=== PATIENT | female | born 1980 | race Hispanic/Latino ===

== ENCOUNTER 2020-11-02 03:47 | Emergency (ER) | payer OTHER ==
[~2020-11-02] VITALS: Ht 167.6 cm; Wt 113.4 kg
[2020-11-02] MEDS ORDERED: ORPHENADRINE CITRATE 30 MG/ML ML ONE (05:01)
[2020-11-02] MEDS ORDERED: KETOROLAC 60 MG VIAL (30MG/ML) ONE (05:02)
[2020-11-02 05:16] LABS: BASOPHILS % (AUTO) 0.3 % (0.0-5.0); EOSINOPHILS % (AUTO) 2.1 % (0.0-8.0); HEMATOCRIT 40.5 % (36-48); LYMPHOCYTES % (AUTO) 18.4 % (21.0-51.0); MEAN CORPUSCULAR HEMOGLOBIN 30.6 pg (27.0-33.0); MEAN CORPUSCULAR HGB CONC 34.1 g/dL (32.0-36.0); MEAN CORPUSCULAR VOLUME 89.8 fL (79-99); MONOCYTES % (AUTO) 6.1 % (3.0-13.0); NEUTROPHILS % (AUTO) 72.7 % (40.0-77.0); PLATELET COUNT (AUTO) 227 K/uL (130-400); RED BLOOD CELL COUNT(AUTO) 4.51 MIL/uL (4.00-5.50); RED CELL DISTRIBUTION WIDTH 13.2 % (11.0-15.5); WHITE BLOOD COUNT (AUTO) 9.8 K/uL (4.8-10.8)
[2020-11-02 05:18] LABS: CREATININE 0.7 mg/dL (0.5-1.5)
[2020-11-02 05:24] VITALS: BP 134/82
[2020-11-02 05:29] LABS: ALBUMIN 3.6 g/dL (3.5-5.0); BILIRUBIN,TOTAL 0.5 mg/dL (0.2-1.0); TOTAL PROTEIN, SERUM 8.2 g/dL (6.0-8.3)
[2020-11-02 07:01] VITALS: BP 134/82
[2020-11-02] MEDS ORDERED: CYCL10TA7 PO (07:13)
[2020-11-02] MEDS ORDERED: IBUP-2070 PO (07:13)
== END 2020-11-02 07:29 | disposition home or self-care (01) ==
LOC: EDH 04:34
DX: S33.5XXA Sprain of ligaments of lumbar spine, initial encounter (principal); M62.830 Muscle spasm of back; R73.9 Hyperglycemia, unspecified; Z91.041 Radiographic dye allergy status; Z79.899 Other long term (current) drug therapy; V49.49XA Driver injured in collision with other motor vehicles in traffic accident, initial encounter; Y93.89 Activity, other specified; Y92.89 Other specified places as the place of occurrence of the external cause; Y99.8 Other external cause status
CPT/HCPCS: 36415; 72131; 80053; 83690; 84702; 85025; 96372 ×2; 99284; J1885; J2360

== ENCOUNTER 2021-04-27 01:31 | Emergency (ER) | payer OTHER ==
[~2021-04-27] VITALS: Ht 152.4 cm; Wt 131.5 kg
[~2021-04-27 01:31] MED LIST: CYCL-309 PO; IBUP-2070 PO
[2021-04-27] MEDS ORDERED: PRED20 PO (02:07)
[2021-04-27] MEDS ORDERED: SOLU-MEDROL 125MG VIAL ONE (02:16)
[2021-04-27 02:28] VITALS: BP 124/78
[2021-04-27] MEDS ORDERED: SOLU-MEDROL 40MG VIAL IJ ONE (02:30)
== END 2021-04-27 02:45 | disposition home or self-care (01) ==
LOC: EDH 01:31
DX: T78.49XA Other allergy, initial encounter (principal); Z79.1 Long term (current) use of non-steroidal anti-inflammatories (NSAID); Z88.8 Allergy status to other drugs, medicaments and biological substances; E11.9 Type 2 diabetes mellitus without complications; W57.XXXA Bitten or stung by nonvenomous insect and other nonvenomous arthropods, initial encounter
CPT/HCPCS: 99283; J2930

== ENCOUNTER 2022-06-16 21:28 | Emergency (ER) | payer BC ==
[~2022-06-16] VITALS: Ht 167.6 cm; Wt 127.9 kg
[~2022-06-16 21:28] MED LIST changes: +PRED20 PO
[2022-06-16 21:46] VITALS: BP 164/97
[2022-06-16] MEDS ORDERED: KETOROLAC 30MG VIAL (30MG/ML) IM ONE (23:00)
[2022-06-17] MEDS ORDERED: DICL35CA3 PO (02:26)
[2022-06-17] MEDS ORDERED: CEPH500B PO (02:26)
[2022-06-17] MEDS ORDERED: CEPHALEXIN 500 MG CAPSULE PO ONE (02:30)
== END 2022-06-17 02:35 | disposition home or self-care (01) ==
LOC: EDH 21:28
DX: N61.0 Mastitis without abscess (principal); E11.9 Type 2 diabetes mellitus without complications; Z90.49 Acquired absence of other specified parts of digestive tract; Z98.890 Other specified postprocedural states
CPT/HCPCS: 99284; 71046; 76642; 96372; J1885; 96374